=== PATIENT | female | born 1975 | race Two or more races ===

== ENCOUNTER 2025-04-30 07:52 | Outpatient (RCR) | payer BC, SELFPAY | END 2025-05-22 23:59 | disposition home or self-care (01) | LOC: SCTC 07:52 | PROVIDERS: PCP Physician Assistant Medical; Referring Provider Physician Assistant Medical; Visit Provider Internal Medicine Hematology & Oncology | DX: D64.9 Anemia, unspecified (principal); N92.0 Excessive and frequent menstruation with regular cycle; R12 Heartburn | CPT/HCPCS: 99213; G0463 ==